=== PATIENT | male | born 1975 | race American Indian/Alaskan Native ===

== ENCOUNTER 2016-05-12 14:06 | Emergency (ER) | payer MEDICAID, OTHER ==
[2016-05-12] MEDS ORDERED: Sodium Chloride 0.9% 1,000 ML IV STA ×2 (14:15→18:16)
--- NOTE | 2016-05-12 14:23 | ED PDOC ---
Arrival/HPI - General Time Seen by Provider: 05/12/16 14:13 Historian: Patient, EMS - History of Present Illness Narrative History of Present Illness (Text): 05/12/16 14:16 41 y.o. who denies any past medical history who says that he took 1/2 a viagra tablet last night and earlier this afternoon, he smoked marijuana and shortly after the marijuana, he says he felt sob and palpitations with nausea/vomiting and defecated on himself. He denies any chest pain. No headache or abd pain but felt mild dizziness earlier. EMS say that when they picked him up, he tried removing his clothes and pouring water on himself. EMS also notes that he accused one of them of looking at his girlfriend. Patient here in the ED denies any SI. Past Medical History - Tetanus Immunization Tetanus Immunization: Unknown - Past Medical History Past Medical History: No Previous - Cardiac Hx Cardiac Disorders: No - Pulmonary Hx Respiratory Disorders: No - Neurological Hx Neurological Disorder: No - HEENT Hx HEENT Disorder: No - Renal Hx Renal Disorder: No - Endocrine/Metabolic Hx Endocrine Disorders: No - Hematological/Oncological Hx Blood Disorders: No - Integumentary Hx Dermatological Disorder: No - Musculoskeletal/Rheumatological Hx Musculoskeletal Disorders: No - Gastrointestinal Hx Gastrointestinal Disorders: Yes Hx Colostomy: Yes (as a baby) - Genitourinary/Gynecological Hx Genitourinary Disorders: No - Psychiatric Hx Substance Use: Yes - Surgical History Other/Comment: colostomy as a baby - Suicidal Assessment Feels Threatened In Home Enviroment: No Family/Social History Family/Social History: No Known Family HX Smoking Status: Light Smoker < 10 Cigarettes Daily Hx Alcohol Use: Yes Hx Substance Use: Yes Substance used: marijuana Hx Substance Use Treatment: No Allergies/Home Meds Allergies/Adverse Reactions: Allergies Penicillins Allergy (Verified 08/24/15 20:05) Home Medications: Home Meds Medication Instructions Recorded Confirmed No Known Home Med [No Known Home 08/24/14 08/24/15 Med] Review of Systems - Review of Systems Constitutional: Normal Eyes: Normal ENT: Normal Respiratory: SOB Cardiovascular: Palpitations Gastrointestinal: Nausea, Vomiting. absent: Abdominal Pain Genitourinary Male: absent: Dysuria Musculoskeletal: Normal Skin: Normal Neurological: Dizziness. absent: Headache, Focal Weakness Endocrine: Diaphoresis Hemo/Lymphatic: Normal Psychiatric: absent: Suicidal Ideation Physical Exam Vital Signs Temp Pulse Resp BP Pulse Ox 05/12/16 19:55 98.2 F 72 19 130/71 99 05/12/16 18:59 97.9 F 78 19 122/73 98 05/12/16 17:10 98 F 98 H 19 129/74 99 05/12/16 14:50 118/48 L 05/12/16 14:28 100.3 F H 110 H 24 151/118 H 100 Temperature: Febrile (low grade) Blood Pressure: Hypertensive Pulse: Tachycardic Respiratory Rate: Normal Appearance: Positive for: Well-Appearing, Non-Toxic, Comfortable Pain Distress: None Mental Status: Positive for: Alert and Oriented X 3 - Systems Exam Head: Present: Atraumatic, Normocephalic Pupils: Present: PERRL Conjunctiva: Present: Normal Mouth: Present: Moist Mucous Membranes Pharnyx: Present: Normal. No: ERYTHEMA Neck: Present: Normal Range of Motion Respiratory/Chest: Present: Clear to Auscultation, Good Air Exchange. No: Respiratory Distress, Accessory Muscle Use Cardiovascular: Present: Normal S1, S2, Tachycardic. No: Murmurs Abdomen: Present: Normal Bowel Sounds. No: Tenderness, Distention, Peritoneal Signs Back: Present: Normal Inspection Upper Extremity: Present: Normal Inspection. No: Cyanosis, Edema Lower Extremity: Present: Normal Inspection. No: Edema Neurological: Present: GCS=15, CN II-XII Intact, Speech Normal Skin: Present: Warm, Dry, Normal Color. No: Rashes Psychiatric: Present: Alert, Oriented x 3, Normal Insight, Normal Concentration Medical Decision Making ED Course and Treatment: 05/12/16 22:24 Patient upon presentation had mild tachycardia and hypertension with low grade temp after smoking marijuana. No chest pain. Initial ekg showed sinus tachycardia with resolved. labs showed elevated CPK, consistent with mild rhabo but negative troponin. Patient was given 2 liters of normal saline in the ED with the CPK trending down nicely and patient saying he feels much better and experiencing complete resolution of symptoms. Repeat vitals normal. Patient's symptoms may have been due to possible synthetic substances not present on urine tox screen given the effects with negative uds after smoking the marijuana. His second set of cardiac enzymes is negative with normal vitals and feels much better - ok for d/c and has been instructed to avoid all drug use and follow up with the medical clinic for repeat CPK level. - Lab Interpretations Lab Results: 05/12/16 15:40 05/12/16 15:45 Lab Results 05/12/16 21:42: Lactate Dehydrogenase 639, Total Creatine Kinase 1116 H, CK-MB ( CK-2) 5.8 H, CK-MB (CK-2) % 0.5 L, Troponin I < 0.01 05/12/16 18:30: Urine Color Yellow, Urine Appearance Sl cloudy, Urine pH 6.0, Ur Specific [place] 1.025, Urine Protein 30 H, Urine Glucose (UA) Negative, Urine Ketones Negative, Urine Blood Moderate H, Urine Nitrate Negative, Urine Bilirubin Negative, Urine Urobilinogen 2.0 H, Ur Leukocyte Esterase Negative, Urine RBC 2 - 5, Urine WBC Negative, Urine Bacteria Few, Urine Opiates Screen Negative, Urine Methadone Screen Negative, Ur Barbiturates Screen Negative, Ur Phencyclidine Scrn Negative, Ur Amphetamines Screen Negative, U Benzodiazepines Scrn Negative, U Oth Cocaine Metabols Negative, U Cannabinoids Screen Positive H 05/12/16 15:45: Sodium 140, Potassium 3.9, Chloride 102, Carbon Dioxide 23, Anion Gap 19, BUN 20, Creatinine 1.3, Est GFR ( Amer) > 60, Est GFR (Non- Af Amer) > 60, Random Glucose 74, Calcium 8.9, Magnesium 2.1, Total Bilirubin 1.5 H, AST 46, ALT 31, Alkaline Phosphatase 78, Lactate Dehydrogenase 963 H, Total Creatine Kinase 1378 H, CK-MB (CK-2) 10.4 H, CK-MB (CK-2) % 0.8 L, Troponin I < 0.01, Total Protein 8.1, Albumin 4.4, Globulin 3.7, Albumin/ Globulin Ratio 1.2, Lipase 78, Alcohol, Quantitative < 10 05/12/16 15:40: WBC 7.1 D, RBC 5.24, Hgb 15.9, Hct 45.4, MCV 86.6, MCH 30.3, MCHC 35.0, RDW 14.2, Plt Count 152, MPV 11.1 H, Gran % 62.1, Lymph % (Auto) 21.3 L, [place] % (Auto) 14.3 H, Eos % (Auto) 2.0, Baso % (Auto) 0.3, Gran # 4.43, Lymph # 1.5, [place] # 1.0 H, Eos # 0.1, Baso # 0.02, Salicylates < 1 L, Acetaminophen < 10.0 L - RAD Interpretation Narrative RAD Interpretations (Text): 05/12/16 22:24 CXR: nad as read by me. Radiology Orders: 05/12/16 14:15 CHEST PORTABLE [RAD] Stat - EKG Interpretation EKG Interpretation (Text): 05/12/16 22:21 sinus tachycardia @ 108 with PVCs; no ST/T changes; normal intervals; normal axis. - Medication Orders Current Medication Orders: Discontinued Medications Sodium Chloride (Sodium Chloride 0.9%) 1,000 mls @ 999 mls/hr IV .Q1H1M STA Stop: 05/12/16 15:15 Last Admin: 05/12/16 16:32 Dose: 999 MLS/HR eMAR Start Stop Document 05/12/16 16:32 GMI (Rec: 05/12/16 16:[id number]) Intravenous Solution Start Date 05/12/16 Start Time 16:34 End Date 05/12/16 End time 18:45 Total Infusion Time 131 Sodium Chloride (Sodium Chloride 0.9%) 1,000 mls @ 999 mls/hr IV .Q1H1M STA Stop: 05/12/16 19:16 Last Admin: 05/12/16 18:45 Dose: 999 MLS/HR eMAR Start Stop Document 05/12/16 18:45 GMI (Rec: 05/12/16 18:45 [place] [id number]) Intravenous Solution Start Date 05/12/16 Start Time 18:45 Lorazepam (Ativan) 1 mg PO ONCE STA PRN Reason: Protocol Stop: 05/12/16 14:28 Last Admin: 05/12/16 15:07 Dose: Not Given Non-Admin Reason: Patient Refused Disposition/Present on Arrival - Present on Arrival Any Indicators Present on Arrival: No History of DVT/PE: No History of Uncontrolled Diabetes: No Urinary Catheter: No History Surgical Site Infection Following: None - Disposition Have Diagnosis and Disposition been Completed?: Yes Diagnosis: Marijuana use, Non-traumatic rhabdomyolysis Disposition: HOME/ ROUTINE Disposition Time: 22:35 Patient Plan: Discharge Patient Problems: Current Active Problems Problem Status Diagnosed Marijuana use Acute Condition: GOOD Additional Instructions: Avoid any marijuana in the future or any substance use at all. Drink plenty of fluids. Have your CPK level repeated by the medical clinic. Return to the emergency department if any new concerning symptoms. Referrals: [facility] at [facility] [place] [Outside] - Follow up with primary
[2016-05-12 14:26] VITALS: BMI 30.8
[2016-05-12 15:53] LABS: ADD MANUAL DIFF? NO
[2016-05-12 16:05] LABS: BASO # 0.02 K/mm3 (0.0-2.0); BASO % 0.3 % (0.0-3.0); EOS # 0.1 (0.0-0.7); GRAN # 4.43 (1.4-6.5); GRAN % 62.1 % (50.0-68.0); HEMATOCRIT 45.4 % (42.0-52.0); LYMPH # 1.5 (1.2-3.4); LYMPH % 21.3 % (22.0-35.0); MEAN CELL VOLUME 86.6 fL (80.0-105.0); MEAN CORPUSCULAR HEMOGLOBIN 30.3 pg (25.0-35.0); MEAN PLATELET VOLUME 11.1 fl (7.0-11.0); MONO % 14.3 % (1.0-6.0); PLATELET COUNT 152 10^3/uL (120.0-450.0); RED CELL DISTRIBUTION WIDTH 14.2 % (11.5-14.5); WHITE BLOOD COUNT 7.1 10^3/ul (4.5-11.0)
[2016-05-12 16:11] LABS: ALB/GLOB RATIO 1.2 (1.1-1.8); ALKALINE PHOSPHATASE 78 U/L (38-133); ALT/SGPT 31 U/L (7-56); AST/SGOT 46 U/L (15-59); BILIRUBIN,TOTAL 1.5 mg/dL (0.2-1.3); BLOOD UREA NITROGEN 20 mg/dL (7-21); CALCIUM 8.9 mg/dL (8.4-10.5); CARBON DIOXIDE 23 mmol/L (21-33); CHLORIDE 102 mmol/L (98-107); GFR AFRICAN-AMERICAN > 60; GLUCOSE,RANDOM 74 mg/dL (70-110); LIPASE 78 U/L (23-300); MAGNESIUM 2.1 mg/dL (1.7-2.2); SODIUM 140 mmol/L (132-148); TOTAL PROTEIN 8.1 g/dL (5.8-8.3)
[2016-05-12 16:18] LABS: POTASSIUM 3.9 mmol/L (3.6-5.0)
[2016-05-12 16:24] LABS: TROPONIN I < 0.01 ng/mL
[2016-05-12 17:10] VITALS: RESP 19
[2016-05-12 18:57] LABS: URINE BILIRUBIN NEGATIVE (NEGATIVE); URINE BLOOD MODERATE (NEGATIVE); URINE GLUCOSE (UA) NEGATIVE (NEGATIVE); URINE KETONE NEGATIVE (NEGATIVE); URINE LEUKOCYTE ESTERASE NEGATIVE Leu/uL (NEGATIVE); URINE PROTEIN 30 mg/dL (<30 mg/dL)
[2016-05-12 18:59] LABS: URINE APPEARANCE SL CLOUDY (CLEAR); URINE COLOR YELLOW (YELLOW)
[2016-05-12 19:03] LABS: URINE BACTERIA FEW (NEG); URINE WBC NEGATIVE /hpf (0-6)
[2016-05-12 19:56] VITALS: BP 130/71; PULSE 72; TEMP 98.2; O2SAT 99
[2016-05-12 22:25] LABS: TROPONIN I < 0.01 ng/mL
--- NOTE | 2016-05-13 08:54 | RAD ---
HISTORY: sob COMPARISON: 08/24/2014 FINDINGS: LUNGS: No active pulmonary disease. PLEURA: No significant pleural effusion identified, no pneumothorax apparent. CARDIOVASCULAR: Normal. OSSEOUS STRUCTURES: No significant abnormalities. VISUALIZED UPPER ABDOMEN: Normal. OTHER FINDINGS: None. IMPRESSION: No active disease.
--- NOTE | 2016-05-13 17:00 | CARD ---
APPROVED REPORT EKG Measurement Heart [id number] DE [id number] <Conclusion> Sinus tachycardia with frequent premature ventricular complexes Possible Left atrial enlargement Borderline ECG
== END 2016-05-12 23:09 | disposition home or self-care (01) ==
LOC: ED 14:06
DX: F12.90 Cannabis use, unspecified, uncomplicated (principal); M62.82 Rhabdomyolysis; F17.210 Nicotine dependence, cigarettes, uncomplicated
CPT/HCPCS: 71010; 80053; 81001; 82550; 82553; 83615; 83690; 83735; 84484; 85025; 93005; 96360; 96361; 99285; G0480; J7040

== ENCOUNTER 2016-05-14 17:06 | Observation (INO) | payer MEDICAID, OTHER ==
[2016-05-14 17:14] VITALS: BMI 30.8
[2016-05-14 17:17] VITALS: O2SAT 99
[2016-05-14] MEDS ORDERED: Sodium Chloride 0.9% 1,000 ML IV STA (18:52)
--- NOTE | 2016-05-14 19:08 | ED PDOC ---
Arrival/HPI <Filippo Grimes - Last Filed: 05/14/16 20:20> - General Historian: Patient - History of Present Illness Time/Duration: < week Symptom Onset: Gradual Symptom Course: Unchanged Quality: Tightness <Herrera Contreras - Last Filed: 05/14/16 20:53> - General Chief Complaint: Chest Pain Time Seen by Provider: 05/14/16 18:01 - History of Present Illness Narrative History of Present Illness (Text): 05/14/16 19:02 41 y/o male with reported PMH presenting with complaints of generalized chest pain and shortness of breath. Patient was seen here at [facility] [place] [facility] on 05/12 with similar complaints. Cardiac w/u was found to be negative. CPK was incidentally found to be elevated. The patient was given IVF and CPK trended down. Patient states he has continued to experience diffuse chest discomfort described as "tightness". Patient states he cannot take a deep breath due to this chest tightness. Additionally he notes diffuse myalgias and arthralgias as well as a chronic cough for multiple weeks. He denies history of recent travel, leg pain or swelling or history of blood clots. Patient admits to marijuana use but denies any synthetic marijuana, cocaine or other illicit drug use. (Herrera Contreras) Past Medical History - Provider Review Nursing Documentation Reviewed: Yes - Infectious Disease Hx of Infectious Diseases: None - Tetanus Immunization Tetanus Immunization: Unknown - Past Medical History Past Medical History: No Previous - Cardiac Hx Cardiac Disorders: No - Pulmonary Hx Respiratory Disorders: No - Neurological Hx Neurological Disorder: No - HEENT Hx HEENT Disorder: No - Renal Hx Renal Disorder: No - Endocrine/Metabolic Hx Endocrine Disorders: No - Hematological/Oncological Hx Blood Disorders: No - Integumentary Hx Dermatological Disorder: No - Musculoskeletal/Rheumatological Hx Musculoskeletal Disorders: No - Gastrointestinal Hx Gastrointestinal Disorders: Yes Hx Colostomy: Yes (as a baby) - Genitourinary/Gynecological Hx Genitourinary Disorders: No - Psychiatric Hx Psychophysiologic Disorder: No Hx Substance Use: Yes - Surgical History Other/Comment: colostomy as a baby - Anesthesia Hx Anesthesia: No Hx Anesthesia Reactions: No Hx Malignant Hyperthermia: No - Suicidal Assessment Feels Threatened In Home Enviroment: No <Herrera Contreras - Last Filed: 05/14/16 20:53> Family/Social History Family/Social History: Diabetes Smoking Status: Light Smoker < 10 Cigarettes Daily Hx Alcohol Use: Yes Hx Substance Use: Yes Substance used: marijuana Hx Substance Use Treatment: No <Herrera Contreras - Last Filed: 05/14/16 20:53> Allergies/Home Meds <Filippo Grimes - Last Filed: 05/14/16 20:20> <Herrera Contreras - Last Filed: 05/14/16 20:53> Allergies/Adverse Reactions: Allergies Penicillins Allergy (Verified 08/24/15 20:05) Home Medications: Home Meds Medication Instructions Recorded Confirmed No Known Home Med [No Known Home 08/24/14 08/24/15 Med] Review of Systems - Physician Review All systems were reviewed & negative as marked: Yes - Review of Systems Constitutional: absent: Fatigue, Fevers Eyes: Normal ENT: absent: Tinnitus, Sore Throat Respiratory: Cough, Sputum. absent: SOB, Wheezing Cardiovascular: Chest Pain. absent: Calf Pain, PRABHAKAR, Syncope Gastrointestinal: absent: Abdominal Pain, Diarrhea, Nausea, Vomiting Genitourinary Male: absent: Dysuria, Frequency, Hematuria Musculoskeletal: Arthralgias, Myalgias. absent: Back Pain, Neck Pain Skin: absent: Rash, Pruritis, Skin Lesions Neurological: absent: Headache, Dizziness, Focal Weakness Psychiatric: Anxiety. absent: Depression <Herrera Contreras - Last Filed: 05/14/16 20:53> Physical Exam Vital Signs Reviewed: Yes Temperature: Afebrile Blood Pressure: Normal Pulse: Regular Respiratory Rate: Normal Appearance: Positive for: Well-Appearing Pain Distress: None Mental Status: Positive for: Alert and Oriented X 3 - Systems Exam Head: Present: Atraumatic, Normocephalic Pupils: Present: PERRL Extroacular Muscles: Present: EOMI Conjunctiva: Present: Normal Mouth: Present: Moist Mucous Membranes Neck: Present: Normal Range of Motion Respiratory/Chest: Present: Clear to Auscultation, Good Air Exchange. No: Respiratory Distress, Wheezes, Rales, Rhonchi Cardiovascular: Present: Regular Rate and Rhythm, Murmurs, Normal S1, S2 Abdomen: Present: Distention, Normal Bowel Sounds. No: Tenderness Upper Extremity: Present: Normal Inspection, Edema, Normal ROM, NORMAL PULSES. No: Cyanosis Lower Extremity: Present: Normal Inspection, Edema, CALF TENDERNESS, NORMAL PULSES Neurological: Present: GCS=15, CN II-XII Intact, Speech Normal Skin: Present: Warm, Dry Psychiatric: Present: Alert, Oriented x 3, Normal Insight, Normal Concentration <Herrera Contreras - Last Filed: 05/14/16 20:53> Vital Signs Temp Pulse Resp BP Pulse Ox 05/14/16 17:13 98.7 F 88 18 121/60 99 Medical Decision Making <Filippo Grimes - Last Filed: 05/14/16 20:20> <Herrera Contreras - Last Filed: 05/14/16 20:53> ED Course and Treatment: Patient Seen With Resident: In agreement with resident note which contains more details about the patient. Patient was seen and evaluated with resident. Came up with plan and treatment together. 05/14/16 20:17 Case discussed in detail with Dr. Damian, accepted tele/obs pt aware of and agrees with plan (Filippo Grimes) 05/14/16 19:11 41 y/o male with no significant PMH presenting with complaints of chest pain and shortness of breath. Chest pain is atypical in nature. Perc criteria is 0 with <2% chance of PE. EKG reveals NSR without acute ischemia. HEART score is 0. The patient was seen here on 05/12 with similar complaints. Troponins were negative at that time however CPK was found to be elevated. Given the patient has not experienced resolution of his symptoms we will further investigate. - Cardiac enzymes - CBC - CMP - CPK - chest xray - EKG 05/14/16 20:49 Lab results reviewed. CPK is elevated at 1026 however this is trending down from initial lab value on 05/12/16. Cardiac enzymes are negative. EKG with NSR and without acute ischemia. Case discussed with medical management trainer who will see the patient and admit for observation for further evaluation of persistent chest discomfort and shortness of breath. (Herrera Contreras) - Lab Interpretations Lab Results: 05/14/16 19:25 05/14/16 19:25 Lab Results 05/14/16 19:25: WBC 6.9, RBC 5.33, Hgb 16.3, Hct 46.3, MCV 86.9, MCH 30.6, MCHC 35.2, RDW 14.2, Plt Count 193, MPV 10.5, Gran % 49.9 L, Lymph % (Auto) 36.1 H, [place] % (Auto) 11.3 H, Eos % (Auto) 2.3, Baso % (Auto) 0.4, Gran # 3.45, Lymph # 2.5, [place] # 0.8 H, Eos # 0.2, Baso # 0.03, Sodium 140, Potassium 3.7, Chloride 102, Carbon Dioxide 28, Anion Gap 14, BUN 12, Creatinine 1.0, Est GFR ( Amer) > 60, Est GFR (Non-Af Amer) > 60, Random Glucose 87, Calcium 8.9, Total Bilirubin 1.3, AST 42, ALT 29, Alkaline Phosphatase 86, Lactate Dehydrogenase 814 H, Total Creatine Kinase 1026 H, CK-MB (CK-2) 5.0 H, CK-MB (CK-2) % 0.5 L, Troponin I < 0.01, Total Protein 8.2, Albumin 4.4, Globulin 3.8, Albumin/ Globulin Ratio 1.2 - RAD Interpretation Radiology Orders: 05/14/16 18:39 CHEST PORTABLE [RAD] Stat - Medication Orders Current Medication Orders: Aspirin (Aspirin Chewable) 81 mg PO DAILY FARRAH Sodium Chloride (Sodium Chloride 0.9%) 1,000 mls @ 100 mls/hr IV .Q10H FARRAH Morphine Sulfate (Morphine) 2 mg IVP Q6 PRN PRN Reason: Pain, moderate (4-7) Discontinued Medications Aspirin (Aspirin) 325 mg PO STAT STA Stop: 05/14/16 18:53 Sodium Chloride (Sodium Chloride 0.9%) 1,000 mls @ 999 mls/hr IV .Q1H1M STA Stop: 05/14/16 19:52 Disposition/Present on Arrival - Present on Arrival Any Indicators Present on Arrival: No - Disposition Have Diagnosis and Disposition been Completed?: Yes Disposition Time: 20:21 Patient Plan: Observation <Filippo Grimes - Last Filed: 05/14/16 20:20> - Present on Arrival Any Indicators Present on Arrival: No History of DVT/PE: No History of Uncontrolled Diabetes: No Urinary Catheter: No History of Decub. Ulcer: No History Surgical Site Infection Following: None - Disposition Have Diagnosis and Disposition been Completed?: Yes Patient Plan: Admission <BenHerrera - Last Filed: 05/14/16 20:53> - Disposition Diagnosis: Atypical chest pain, Rhabdomyolysis Disposition: HOSPITALIZED Condition: STABLE Discharge Instructions (ExitCare): Chest Pain (ED) Referrals: Lenka Butler, [Primary Care Provider] - Follow up with primary
[2016-05-14 19:30] LABS: ADD MANUAL DIFF? NO
[2016-05-14 19:34] LABS: BASO # 0.03 K/mm3 (0.0-2.0); BASO % 0.4 % (0.0-3.0); EOS # 0.2 (0.0-0.7); EOS % 2.3 % (1.5-5.0); GRAN # 3.45 (1.4-6.5); GRAN % 49.9 % (50.0-68.0); HEMATOCRIT 46.3 % (42.0-52.0); LYMPH # 2.5 (1.2-3.4); LYMPH % 36.1 % (22.0-35.0); MEAN CELL VOLUME 86.9 fL (80.0-105.0); MEAN CORPUSCULAR HEMOGLOBIN 30.6 pg (25.0-35.0); MEAN CORPUSCULAR HGB CONC 35.2 g/dl (31.0-37.0); MEAN PLATELET VOLUME 10.5 fl (7.0-11.0); MONO # 0.8 (0.1-0.6); MONO % 11.3 % (1.0-6.0); PLATELET COUNT 193 10^3/uL (120.0-450.0); RED CELL DISTRIBUTION WIDTH 14.2 % (11.5-14.5); WHITE BLOOD COUNT 6.9 10^3/ul (4.5-11.0)
[2016-05-14 19:47] LABS: ALB/GLOB RATIO 1.2 (1.1-1.8); ALKALINE PHOSPHATASE 86 U/L (38-133); ALT/SGPT 29 U/L (7-56); AST/SGOT 42 U/L (15-59); BILIRUBIN,TOTAL 1.3 mg/dL (0.2-1.3); BLOOD UREA NITROGEN 12 mg/dL (7-21); CALCIUM 8.9 mg/dL (8.4-10.5); CARBON DIOXIDE 28 mmol/L (21-33); CHLORIDE 102 mmol/L (98-107); GFR AFRICAN-AMERICAN > 60; GLUCOSE,RANDOM 87 mg/dL (70-110); POTASSIUM 3.7 mmol/L (3.6-5.0); SODIUM 140 mmol/L (132-148); TOTAL PROTEIN 8.2 g/dL (5.8-8.3)
[2016-05-14 20:01] LABS: TROPONIN I < 0.01 ng/mL
[2016-05-14] MEDS ORDERED: Morphine 2 mg/ml ISec IVP PRN (20:38)
--- NOTE | 2016-05-14 20:48 | CP.PCM.HP ---
History of Present Illness - History of Present Illness History of Present Illness: This is a 41 yo male with no past medical hx presenting with chest pain x 1 day. Pain came on gradually while pt was walking around his house last night. It has happened before, every few months throughout the past year. This is the first time he is seeing a doctor, although medical records indicate he was in ER a few days ago. "Pinching" sensation. Says it radiates to back. It is constant, getting worse, 7/10. No recent travel, no sick contacts. Reports pleuritic in nature. Did not take any meds at home for pain. Nothing makes it better, nothing makes it worse. Denies cough, recent sx, any plane flights, denies prior PE. PMH: None PSH: Colostomy Allergies: PCN FH: Mom- from [place]- 65; GF- [place], GM- [place] Home meds: none Social hx: Current smoker. 1 pack every few days, for 20 yrs. Social drinker. Smokes marijuana. Denies other drug use. Works in [employer]. Lives in [place]. Born in . Present on Admission - Present on Admission Any Indicators Present on Admission: No History of DVT/PE: No History of Uncontrolled Diabetes: No Urinary Catheter: No Decubitus Ulcer Present: No Review of Systems - Review of Systems All systems: reviewed and no additional remarkable complaints except Review of Systems: Negative except as stated in HPI. Past Patient History - Infectious Disease Hx of Infectious Diseases: None - Tetanus Immunizations Tetanus Immunization: Unknown - Past Medical History & Family History Past Medical History?: No Pertinent Family History: Heart dx, [place] in multiple family members - Past Social History Smoking Status: Light Smoker < 10 Cigarettes Daily Chewing Tobacco Use: No Cigar Use: No Alcohol: Social Drugs: Cannabis Home Situation {Lives}: With Family Domestic Violence: Negative - CARDIAC Hx Cardiac Disorders: No - PULMONARY Hx Respiratory Disorders: No - NEUROLOGICAL Hx Neurological Disorder: No - HEENT Hx HEENT Problems: No - RENAL Hx Chronic Kidney Disease: No - ENDOCRINE/METABOLIC Hx Endocrine Disorders: No - HEMATOLOGICAL/ONCOLOGICAL Hx Blood Disorders: No - INTEGUMENTARY Hx Dermatological Problems: No - MUSCULOSKELETAL/RHEUMATOLOGICAL Hx Musculoskeletal Disorders: No - GASTROINTESTINAL Hx Gastrointestinal Disorders: Yes Hx Colostomy: Yes (as a baby) - GENITOURINARY/GYNECOLOGICAL Hx Genitourinary Disorders: No - PSYCHIATRIC Hx Psychophysiologic Disorder: No Hx Substance Use: Yes - SURGICAL HISTORY Other/Comment: colostomy as a baby - ANESTHESIA Hx Anesthesia: No Hx Anesthesia Reactions: No Hx Malignant Hyperthermia: No Meds Allergies/Adverse Reactions: Allergies Allergy/AdvReac Type Severity Reaction Status Date / Time Penicillins Allergy Verified 08/24/15 20:05 Physical Exam - Constitutional Appears: Non-toxic, No Acute Distress - Head Exam Head Exam: ATRAUMATIC, NORMAL INSPECTION, NORMOCEPHALIC - Eye Exam Eye Exam: EOMI - ENT Exam ENT Exam: Mucous Membranes Moist - Neck Exam Neck exam: Positive for: Normal Inspection - Respiratory Exam Respiratory Exam: Clear to Auscultation Bilateral, NORMAL BREATHING PATTERN - Cardiovascular Exam Cardiovascular Exam: REGULAR RHYTHM, +S1, +S2 - GI/Abdominal Exam GI & Abdominal Exam: Normal Bowel Sounds, Soft. absent: Tenderness - Extremities Exam Extremities exam: Positive for: normal inspection - Back Exam Back exam: NORMAL INSPECTION - Neurological Exam Neurological exam: Alert, CN II-XII Intact, Oriented x3 - Psychiatric Exam Psychiatric exam: Normal Affect, Normal Mood - Skin Skin Exam: Dry, Intact, Normal Color, Warm Results - Vital Signs Recent Vital Signs: Last Vital Signs Temp 98.7 F 05/14/16 17:13 Pulse 88 05/14/16 17:13 Resp 18 05/14/16 17:13 BP 121/60 05/14/16 17:13 Pulse Ox 99 05/14/16 17:13 - Labs Result Diagrams: 05/14/16 19:25 05/14/16 19:25 Labs: Laboratory Results - last 24 hr 05/14/16 19:25 WBC 6.9 RBC 5.33 Hgb 16.3 Hct 46.3 MCV 86.9 MCH 30.6 MCHC 35.2 RDW 14.2 Plt Count 193 MPV 10.5 Gran % 49.9 L Lymph % (Auto) 36.1 H [place] % (Auto) 11.3 H Eos % (Auto) 2.3 Baso % (Auto) 0.4 Gran # 3.45 Lymph # 2.5 [place] # 0.8 H Eos # 0.2 Baso # 0.03 Sodium 140 Potassium 3.7 Chloride 102 Carbon Dioxide 28 Anion Gap 14 BUN 12 Creatinine 1.0 Est GFR ( Amer) > 60 Est GFR (Non-Af Amer) > 60 Random Glucose 87 Calcium 8.9 Total Bilirubin 1.3 AST 42 ALT 29 Alkaline Phosphatase 86 Lactate Dehydrogenase 814 H Total Creatine Kinase 1026 H CK-MB (CK-2) 5.0 H CK-MB (CK-2) % 0.5 L Troponin I < 0.01 Total Protein 8.2 Albumin 4.4 Globulin 3.8 Albumin/Globulin Ratio 1.2 Assessment & Plan - Assessment and Plan (Free Text) Assessment: THis is a 41 yo male with no past medical hx presenting with chest pain x 1 day 1. Chest pain, r/o acs -serial cardiac enzymes -serial ekgs -asa 81 daily -cxr pending -ekg shows NSR -elevated cpk, we will start NS @ 100. 2. GI/DVT -lovenox 40 daily -protonix 40 daily estela Damian
[2016-05-14] MEDS: Sodium Chloride 0.9% 1,000 ML IV SCH (21:46)
[2016-05-14 22:06] LABS: CHOLESTEROL 131 mg/dL (130-200)
[2016-05-15] MEDS: Sodium Chloride 0.9% 1,000 ML IV SCH (05:58)
--- NOTE | 2016-05-15 08:45 | RAD ---
HISTORY: chest pain COMPARISON: 05/12/2016 FINDINGS: LUNGS: No active pulmonary disease. PLEURA: No significant pleural effusion identified, no pneumothorax apparent. CARDIOVASCULAR: Normal. OSSEOUS STRUCTURES: No significant abnormalities. VISUALIZED UPPER ABDOMEN: Normal. OTHER FINDINGS: None. IMPRESSION: No active disease.
[2016-05-15 10:25] LABS: ADD MANUAL DIFF? NO
[2016-05-15 10:28] LABS: BASO # 0.02 K/mm3 (0.0-2.0); BASO % 0.4 % (0.0-3.0); EOS # 0.2 (0.0-0.7); EOS % 3.6 % (1.5-5.0); GRAN # 2.89 (1.4-6.5); GRAN % 51.2 % (50.0-68.0); HEMATOCRIT 43.6 % (42.0-52.0); LYMPH # 1.9 (1.2-3.4); LYMPH % 33.6 % (22.0-35.0); MEAN CELL VOLUME 86.7 fL (80.0-105.0); MEAN CORPUSCULAR HEMOGLOBIN 30.4 pg (25.0-35.0); MEAN CORPUSCULAR HGB CONC 35.1 g/dl (31.0-37.0); MEAN PLATELET VOLUME 11.2 fl (7.0-11.0); MONO # 0.6 (0.1-0.6); MONO % 11.2 % (1.0-6.0); PLATELET COUNT 200 10^3/uL (120.0-450.0); RED CELL DISTRIBUTION WIDTH 14.2 % (11.5-14.5); WHITE BLOOD COUNT 5.6 10^3/ul (4.5-11.0)
[2016-05-15 10:34] LABS: ALB/GLOB RATIO 1.1 (1.1-1.8); ALKALINE PHOSPHATASE 68 U/L (38-133); ALT/SGPT 38 U/L (7-56); AST/SGOT 35 U/L (15-59); BILIRUBIN,TOTAL 1.3 mg/dL (0.2-1.3); BLOOD UREA NITROGEN 16 mg/dL (7-21); CALCIUM 8.3 mg/dL (8.4-10.5); CARBON DIOXIDE 25 mmol/L (21-33); CHLORIDE 103 mmol/L (98-107); GFR AFRICAN-AMERICAN > 60; GLUCOSE,RANDOM 141 mg/dL (70-110); POTASSIUM 3.8 mmol/L (3.6-5.0); SODIUM 139 mmol/L (132-148); TOTAL PROTEIN 7.2 g/dL (5.8-8.3)
--- NOTE | 2016-05-15 11:01 | CON ---
DATE: 05/15/2016 REASON FOR CONSULTATION: Chest pain. BRIEF CLINICAL HISTORY: A 41-year-old male with no significant past medical history except active to bacco abuse, admitted with a complaint of chest pain, pain in the neck, pain below the clavicle left side, and then pain in subchondral region radiating to axillary area. Denies any chest pain on exert ion or dyspnea on exertion. PAST MEDICAL HISTORY: Nothing significant. PAST SURGICAL HISTORY: Significant for colostomy at the age of 3. ALLERGIES: ALLERGIC TO PENICILLIN. CURRENT MEDICATIONS: None. FAMILY HISTORY: Significant for coronary artery disease. PHYSICAL EXAMINATION: VITAL SIGNS: Temperature afebrile, heart rate 57, blood pressure 105/47. HEENT: PERRLA. Extraocular muscles intact. NECK: Supple. No carotid bruits. No thyromegaly. CHEST: Clear to auscultation. HEART: S1, S2 regular. ABDOMEN: Soft. EXTREMITIES: Clubbing and cyanosis negative. BLOOD WORKUP: WBC 6.9, hemoglobin 16.3, hematocrit 46.3, platelet count 193. Chemistry shows sodium 140, potassium 3.____, chloride 102, carbon dioxide 28, anion gap of 14, BUN 12, creatinine 1. Trop onin 0.01, first was 0.2. Triglyceride 71, cholesterol 131, LDL 131, HDL 37. IMPRESSION: Morbid obesity with body mass index of 45.____ kg/m2, height 6 feet 2 inches, weight is 356 pounds; atypical chest pain, no evidence for acute myocardial infarction. Electrocardiogram show s normal sinus. RECOMMENDATION: Will get echo. Will get a second set of troponin secondary ____ troponin. The nils ent can be discharged home, followup regular stress test as outpatient for risk stratification, other christianson atypical chest pain. Will follow with you. Thank you, Dr. Aviles, for providing the opportunity in taking care of this patient. Caitlin Bro MD cc: [id number] TT: 05/15/2016 11:01:04 Confirmation # [id number] Dictation # [id number]
[2016-05-15 12:55] VITALS: BP 123/64; RESP 21; TEMP 97.1
[2016-05-15 14:30] LABS: TROPONIN I 0.01 ng/mL
--- NOTE | 2016-05-15 15:39 | CARD ---
APPROVED REPORT EXAM: Two-dimensional and M-mode echocardiogram with Doppler and color Doppler. INDICATION Chest Pain 2D DIMENSIONS Left Atrium (2D)4.1 (1.6-4.0cm)IVSd1.2 (0.7-1.1cm) LVDd5.1 (3.9-5.9cm)PWd1.4 (0.7-1.1cm) LVDs3.0 (2.5-4.0cm)FS (%) 39.8 % LVEF (%)70.1 (>50%) M-Mode DIMENSIONS Aortic Root2.60 (2.2-3.7cm)Aortic Cusp Exc.1.80 (1.5-2.0cm) Aortic Valve AoV Peak Jagfndjh083.0cm/Courtney Peak GR.9mmHg Mitral Valve MV E Bqmomwpq187.0cm/sMV A Upqwshuu64.3cm/sE/A ratio1.7 TDI E/Lateral E'0.0E/Medial E'0.0 Tricuspid Valve TR Peak Dfwethzr196rs/sRAP [id number] Peak Gr.6mmHg PRSS75fpPr LEFT VENTRICLE The left ventricle is normal size. There is borderline concentric left ventricular hypertrophy. The left ventricular function is normal. The left ventricular ejection fraction is within the normal range. There is normal LV segmental wall motion. The left ventricular diastolic function is normal. RIGHT VENTRICLE The right ventricle is normal size. There is normal right ventricular wall thickness. The right ventricular systolic function is normal. ATRIA The left atrium size is normal. The right atrium size is normal. AORTIC VALVE The aortic valve is not well visualized. No aortic regurgitation is present. MITRAL VALVE The mitral valve is normal in structure. TRICUSPID VALVE There is no pulmonary hypertension. GREAT VESSELS The aortic root is normal in size. The IVC is normal in size and collapses >50% with inspiration. PERICARDIAL EFFUSION There is no pericardial effusion. <Conclusion> The left ventricle is normal size. There is borderline concentric left ventricular hypertrophy. The left ventricular function is normal. The left ventricular ejection fraction is within the normal range. There is normal LV segmental wall motion. The left ventricular diastolic function is normal.
--- NOTE | 2016-05-15 15:49 | CP.PCM.DIS ---
<Kian Oshea - Last Filed: 05/16/16 07:30> Provider - Provider Date of Admission: 05/14/16 20:21 Attending physician: Inge Aviles MD Primary care physician: NO PRIMARY CARE PROVIDER Consults: Dr. Harris Bro Time Spent in preparation of Discharge (in minutes): 35 Hospital Course - Lab Results Lab Results: Most Recent Lab Values WBC 5.6 10^3/ul (4.5-11.0) 05/15/16 08:00 RBC 5.03 10^6/uL (3.5-6.1) 05/15/16 08:00 Hgb 15.3 gm/dL (14.0-18.0) 05/15/16 08:00 Hct 43.6 % (42.0-52.0) 05/15/16 08:00 MCV 86.7 fL (80.0-105.0) 05/15/16 08:00 MCH 30.4 pg (25.0-35.0) 05/15/16 08:00 MCHC 35.1 g/dl (31.0-37.0) 05/15/16 08:00 RDW 14.2 % (11.5-14.5) 05/15/16 08:00 Plt Count 200 10^3/uL (120.0-450.0) 05/15/16 08:00 MPV 11.2 fl (7.0-11.0) H 05/15/16 08:00 Gran % 51.2 % (50.0-68.0) 05/15/16 08:00 Lymph % (Auto) 33.6 % (22.0-35.0) 05/15/16 08:00 Major % (Auto) 11.2 % (1.0-6.0) H 05/15/16 08:00 Eos % (Auto) 3.6 % (1.5-5.0) 05/15/16 08:00 Baso % (Auto) 0.4 % (0.0-3.0) 05/15/16 08:00 Gran # 2.89 (1.4-6.5) 05/15/16 08:00 Lymph # 1.9 (1.2-3.4) 05/15/16 08:00 Major # 0.6 (0.1-0.6) 05/15/16 08:00 Eos # 0.2 (0.0-0.7) 05/15/16 08:00 Baso # 0.02 K/mm3 (0.0-2.0) 05/15/16 08:00 Sodium 139 mmol/L (132-148) 05/15/16 08:00 Potassium 3.8 mmol/L (3.6-5.0) 05/15/16 08:00 Chloride 103 mmol/L (98-107) 05/15/16 08:00 Carbon Dioxide 25 mmol/L (21-33) 05/15/16 08:00 Anion Gap 15 (10-20) 05/15/16 08:00 BUN 16 mg/dL (7-21) 05/15/16 08:00 Creatinine 1.0 mg/dL (0.5-1.4) 05/15/16 08:00 Est GFR ( Amer) > 60 05/15/16 08:00 Est GFR (Non-Af Amer) > 60 05/15/16 08:00 Random Glucose 141 mg/dL (70-110) H 05/15/16 08:00 Hemoglobin A1c 6.9 % (4.2-6.5) H 05/14/16 21:30 Calcium 8.3 mg/dL (8.4-10.5) L 05/15/16 08:00 Total Bilirubin 1.3 mg/dL (0.2-1.3) 05/15/16 08:00 AST 35 U/L (15-59) 05/15/16 08:00 ALT 38 U/L (7-56) 05/15/16 08:00 Alkaline Phosphatase 68 U/L (38-133) 05/15/16 08:00 Lactate Dehydrogenase 633 U/L (333-699) 05/15/16 14:00 Total Creatine Kinase 713 U/L (35-230) H 05/15/16 14:00 CK-MB (CK-2) 3.7 ng/mL (0.0-3.6) H 05/15/16 14:00 CK-MB (CK-2) % 0.5 % (2.5-3.0) L 05/14/16 19:25 Troponin I 0.01 ng/mL D 05/15/16 14:00 Total Protein 7.2 g/dL (5.8-8.3) 05/15/16 08:00 Albumin 3.8 g/dL (3.0-4.8) 05/15/16 08:00 Globulin 3.5 gm/dL 05/15/16 08:00 Albumin/Globulin Ratio 1.1 (1.1-1.8) 05/15/16 08:00 Triglycerides 71 mg/dL (35-160) 05/14/16 21:30 Cholesterol 131 mg/dL (130-200) 05/14/16 21:30 LDL Cholesterol Direct 71 mg/dL (0-129) 05/14/16 21:30 HDL Cholesterol 37 mg/dL (29-60) 05/14/16 21:30 - Hospital Course Hospital Course: HPI: This is a 41 yo male with no past medical hx presenting with chest pain x 1 day. Pain came on gradually while pt was walking around his house last night. It has happened before, every few months throughout the past year. This is the first time he is seeing a doctor, although medical records indicate he was in ER a few days ago. "Pinching" sensation. Says it radiates to back. It is constant, getting worse, 7/10. No recent travel, no sick contacts. Reports pleuritic in nature. Did not take any meds at home for pain. Nothing makes it better, nothing makes it worse. Denies cough, recent sx, any plane flights, denies prior PE. Patient is a 41 y/o AA M who presented to the ED with complaint of chest pain for 1 day. He recently was seen in the ED with nausea and vomiting after smoking marijuana and found to have an elevated CPK level. On this occasion, he was admitted for chest pain. An initial chest x-ray showed no active disease process. An EKG showed normal sinus rhytm without ST changes. Serial cardiac enzymes were drawn and remained negative. With IV fluid hydration, his CPK levels decreased. An echocardiogram was performed showing a LVEF within normal range. The patient was told would need to follow up for an outpatient stress test. The patient's chest tenderness was reproducible upon palpation and was shown a series of stretches to alleviate muscle strain. He was determined medically stable for discharge. 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 He was also told to increase exercise regimen and start heart healthy diet to prevent diabetes, refrain from drinking sugary beverages and drink more water, refrain from illegal drug use, and if chest pain develops or symptoms re-emerge, seek medical attention immediately. He verbalized understanding and was discharged home. This is a brief summary of the patient's stay at this facility. For more detail , see patient's full chart. - Date & Time of H&P Date of H&P: 05/14/16 Time of H&P: 20:44 Discharge Exam - Head Exam Head Exam: ATRAUMATIC, NORMAL INSPECTION, NORMOCEPHALIC - Eye Exam Eye Exam: EOMI, Normal appearance, PERRL Pupil Exam: NORMAL ACCOMODATION, PERRL - ENT Exam ENT Exam: Mucous Membranes Moist, Normal Oropharynx - Respiratory Exam Respiratory Exam: Clear to PA & Lateral, NORMAL BREATHING PATTERN. absent: Rales, Rhonchi, Wheezes - Cardiovascular Exam Cardiovascular Exam: REGULAR RHYTHM, +S1, +S2. absent: Gallop, Rubs, Systolic Murmur - GI/Abdominal Exam GI & Abdominal Exam: Normal Bowel Sounds, Soft. absent: Guarding, Organomegaly , Tenderness - Extremities Exam Extremities exam: normal capillary refill, normal inspection, pedal pulses present - Back Exam Back exam: tenderness (left rib 2-3) - Neurological Exam Neurological exam: Alert, CN II-XII Intact, Oriented x3 - Psychiatric Exam Psychiatric exam: Normal Affect, Normal Mood - Skin Skin Exam: Dry, Intact, Warm Discharge Plan - Discharge Medications Prescriptions: Naproxen 500 mg PO BID #8 ect - Follow Up Plan Condition: STABLE Disposition: HOME/ ROUTINE Instructions: Chest Pain (DC), Chest Pain (GEN), How to Stop Smoking (DC) Additional Instructions: 1) You are medically stable for discharge. 2) Please follow up with the [facility] [place] [facility] [place] 3) Please follow up with you solder making supervisor for outpatient stress test on 05/28/16. Dr. Bro Address: [address] [place] [address], [address] [place] Office #: [phone] Your prescription for Naproxen was sent to the [facility] [place], please take medications as prescribed. 5) Please increase exercise regimen and start heart healthy diet to prevent diabetes. 6) Please refrain from drinking sugary beverages and drink more water. 7) Please refrain from illegal drug use. 8) If chest pain develops or symptoms re-emerge, seek medical attention immediately! Referrals: PCP,NO [Primary Care Provider] - [facility] [place]] Caitlin Bro MD [Staff Provider] - <Inge Aviles - Last Filed: 05/16/16 15:10> Provider - Provider Date of Admission: 05/14/16 20:21 Attending physician: Inge Aviles MD Primary care physician: RAQUEL PRIMARY CARE PROVIDER Time Spent in preparation of Discharge (in minutes): 35 Hospital Course - Lab Results Lab Results: Most Recent Lab Values WBC 5.6 10^3/ul (4.5-11.0) 05/15/16 08:00 RBC 5.03 10^6/uL (3.5-6.1) 05/15/16 08:00 Hgb 15.3 gm/dL (14.0-18.0) 05/15/16 08:00 Hct 43.6 % (42.0-52.0) 05/15/16 08:00 MCV 86.7 fL (80.0-105.0) 05/15/16 08:00 MCH 30.4 pg (25.0-35.0) 05/15/16 08:00 MCHC 35.1 g/dl (31.0-37.0) 05/15/16 08:00 RDW 14.2 % (11.5-14.5) 05/15/16 08:00 Plt Count 200 10^3/uL (120.0-450.0) 05/15/16 08:00 MPV 11.2 fl (7.0-11.0) H 05/15/16 08:00 Gran % 51.2 % (50.0-68.0) 05/15/16 08:00 Lymph % (Auto) 33.6 % (22.0-35.0) 05/15/16 08:00 Major % (Auto) 11.2 % (1.0-6.0) H 05/15/16 08:00 Eos % (Auto) 3.6 % (1.5-5.0) 05/15/16 08:00 Baso % (Auto) 0.4 % (0.0-3.0) 05/15/16 08:00 Gran # 2.89 (1.4-6.5) 05/15/16 08:00 Lymph # 1.9 (1.2-3.4) 05/15/16 08:00 Major # 0.6 (0.1-0.6) 05/15/16 08:00 Eos # 0.2 (0.0-0.7) 05/15/16 08:00 Baso # 0.02 K/mm3 (0.0-2.0) 05/15/16 08:00 Sodium 139 mmol/L (132-148) 05/15/16 08:00 Potassium 3.8 mmol/L (3.6-5.0) 05/15/16 08:00 Chloride 103 mmol/L (98-107) 05/15/16 08:00 Carbon Dioxide 25 mmol/L (21-33) 05/15/16 08:00 Anion Gap 15 (10-20) 05/15/16 08:00 BUN 16 mg/dL (7-21) 05/15/16 08:00 Creatinine 1.0 mg/dL (0.5-1.4) 05/15/16 08:00 Est GFR ( Amer) > 60 05/15/16 08:00 Est GFR (Non-Af Amer) > 60 05/15/16 08:00 Random Glucose 141 mg/dL (70-110) H 05/15/16 08:00 Hemoglobin A1c 6.9 % (4.2-6.5) H 05/14/16 21:30 Calcium 8.3 mg/dL (8.4-10.5) L 05/15/16 08:00 Total Bilirubin 1.3 mg/dL (0.2-1.3) 05/15/16 08:00 AST 35 U/L (15-59) 05/15/16 08:00 ALT 38 U/L (7-56) 05/15/16 08:00 Alkaline Phosphatase 68 U/L (38-133) 05/15/16 08:00 Lactate Dehydrogenase 633 U/L (333-699) 05/15/16 14:00 Total Creatine Kinase 713 U/L (35-230) H 05/15/16 14:00 CK-MB (CK-2) 3.7 ng/mL (0.0-3.6) H 05/15/16 14:00 CK-MB (CK-2) % 0.5 % (2.5-3.0) L 05/14/16 19:25 Troponin I 0.01 ng/mL D 05/15/16 14:00 Total Protein 7.2 g/dL (5.8-8.3) 05/15/16 08:00 Albumin 3.8 g/dL (3.0-4.8) 05/15/16 08:00 Globulin 3.5 gm/dL 05/15/16 08:00 Albumin/Globulin Ratio 1.1 (1.1-1.8) 05/15/16 08:00 Triglycerides 71 mg/dL (35-160) 05/14/16 21:30 Cholesterol 131 mg/dL (130-200) 05/14/16 21:30 LDL Cholesterol Direct 71 mg/dL (0-129) 05/14/16 21:30 HDL Cholesterol 37 mg/dL (29-60) 05/14/16 21:30 - Hospital Course Hospital Course: attending note; Patient seen and examined with resident. Patient is a 41-year-old morbidly obese male admitted with chest pain. Cardiac enzymes 3 negative. cardiology evaluation appreciated. Stress test ordered as outpatient. Elevated CPK; patient smokes marijuana. Possibility of cocaine abuse suspected. Advised to stop drug use. Advised to stop alcohol use. Patient will follow[place] [facility] [place]. Diagnosis; Chest pain Obesity marijuana use
[2016-05-15 17:12] VITALS: PULSE 74
--- NOTE | 2016-05-15 18:30 | CARD ---
APPROVED REPORT EKG Measurement Heart [id number] CT [id number] <Conclusion> Normal sinus rhythm with sinus arrhythmia Normal ECG
--- NOTE | 2016-05-15 18:54 | CARD ---
APPROVED REPORT EKG Measurement Heart [id number] [place] [id number] <Conclusion> Normal sinus rhythm Normal ECG
== END 2016-05-15 17:14 | disposition home or self-care (01) ==
LOC: ED 17:06 → ERH 20:21 → 2RNO 05-15 03:48
PROVIDERS: ADMIT Internal Medicine; ATTEND Internal Medicine
DX: R07.89 Other chest pain (principal); M62.82 Rhabdomyolysis; F12.90 Cannabis use, unspecified, uncomplicated; E66.01 Morbid (severe) obesity due to excess calories; Z68.30 Body mass index [BMI] 30.0-30.9, adult; Z88.0 Allergy status to penicillin; Z82.49 Family history of ischemic heart disease and other diseases of the circulatory system
CPT/HCPCS: 36415; 71010; 80053; 80061; 82550; 82553; 83036; 83615; 84484; 85025; 93005; 93306; 99285; C9113; G0378; J7040